=== PATIENT | female | born 1940 ===

== ENCOUNTER 2017-05-25 08:39 | Inpatient (IN) ==
--- NOTE | 2017-05-25 09:07 | EKG Report ---
Test Performed on : 05/25/2017 08:48:39 AM Test Reason : Chest Pain Blood Pressure : / mmHG Vent. Rate : 113 BPM Atrial Rate : 113 BPM P-R Int : 120 ms QRS Dur : 088 ms QT Int : 326 ms P-R-T Axes : 057 -41 080 degrees QTc Int : 447 ms Sinus tachycardia. Possible Left atrial enlargement Left axis deviation Low voltage QRS Abnormal ECG No previous ECGs available Unconfirmed Result
[2017-05-25 09:38] LABS: MANUAL DIFF NEEDED? NO
[2017-05-25 09:43] LABS: BASO% 0.2 % (0.0-0.8); EOS% 2.3 % (0.0-10.0); HEMATOCRIT 43.3 % (37.0-47.0); HEMOGLOBIN 14.6 g/dL (12.0-16.0); IMM GRAN# 0.03 X1000 (0.0-0.04); IMM GRAN% 0.2 % (0.0-0.5); LYMPH# 1.04 X1000 (1.2-3.4); LYMPH% 8.1 % (20.5-51.1); MCH 29.7 PG (27-31); MCHC 33.7 g/dL (33-37); MCV 88.2 FL (81-99); MONO# 0.83 X1000 (0.11-0.59); MONO% 6.5 % (1.7-9.3); MPV 9.4 FL (7.4-10.4); NEUT% 82.7 % (42.2-75.2); PLT 219 X1000 (130-400); RBC 4.91 XMIL (4.2-5.4)
[2017-05-25 09:58] LABS: INR 1.07; PROTIME 11.3 Seconds (9.2-11.7); PTT 22.4 Seconds (22.0-36.0)
--- NOTE | 2017-05-25 09:59 | Diag Imaging Result Doc PS360 ---
EXAM: CHEST-2 VIEWS HISTORY: CP TECHNIQUE: PA and lateral chest COMMENT: There is a massive left pleural effusion with shift of the mediastinum to the right. Nearly the entire left lung is atelectatic. There is a pleural-based mass or area of pleural thickening in the right apex. There is possible lytic destruction of the anterior right first rib. The possibility of metastatic disease or multiple myeloma should be considered. The heart size is not apparently enlarged. There are no previous studies available for comparison. IMPRESSION: Massive left pleural effusion with compressive atelectasis and shift of the mediastinum. Subpleural mass in the anterior right apex. Electronically signed by Mamadou Knox 05/25/2017 9:56 AM
[2017-05-25 10:11] LABS: AGAP 21; ALBUMIN 3.4 g/dL (3.5-5.0); ALKALINE PHOSPHATASE 146 U/L (32-104); BUN 26 mg/dL (8-22); CALCIUM 9.1 mg/dL (8.8-10.2); CHLORIDE 98 mmol/L (98-107); CK PROFILE 59 U/L (24-173); COSMO 282; GOT 14 U/L (10-30); GPT 9 U/L (10-36); MAGNESIUM 2.3 mg/dL (1.5-2.7); SODIUM 138 mmol/L (136-145); TCO2 19 mmol/L (25-35); TOTAL BILIRUBIN 0.78 mg/dL (0.20-1.00); TOTAL PROTEIN 7.1 g/dL (6.3-8.3)
[2017-05-25 12:02] LABS: URINE MICRO REVIEW NEEDED? NO; URINE SOURCE CLEAN CATCH
[2017-05-25 12:16] LABS: BILIRUBIN URINE SMALL (NEGATIVE); BLOOD URINE NEGATIVE (NEGATIVE); COLOR YELLOW; GLUCOSE URINE NEGATIVE (NEGATIVE); LEUKOCYTES URINE NEGATIVE (NEGATIVE); NITRITE URINE NEGATIVE (NEGATIVE); PROTEIN URINE 50 mg/dL (NEGATIVE); TURBIDITY URINE CLEAR (CLEAR); UROBILINOGEN URINE 3 mg/dL (NORMAL)
[2017-05-25 12:17] LABS: UR EPITHELIAL CELLS >10 /HPF (<10); URINE BACTERIA NEGATIVE /HPF; URINE CULTURE NEEDED? YES; URINE RBC <10 /HPF (<10)
--- NOTE | 2017-05-25 12:17 | Diag Imaging Result Doc PS360 ---
EXAM: CT THORAX W/O CONTRAST HISTORY: malignancy possibly TECHNIQUE: CT of the chest without contrast with reduced radiation dose COMMENT: There are no previous studies available for comparison. There is an expansile mass arising from the anterior right first rib. This is presumably responsible for the extrapleural mass seen on the plain radiograph. It measures 4.7 x 3.7 cm in the axial plane. The left hemithorax is nearly completely airless with a massive pleural effusion and nearly complete atelectasis of the left lower lobe. There is right paratracheal and aorticopulmonary window adenopathy with the latter demonstrating a node approaching 15 mm in greatest dimension. There is some calcification in the left anterior descending coronary artery. 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 The differential diagnosis would include other metastatic processes. Massive left pleural effusion. Possibility of an endobronchial obstruction cannot be excluded. Electronically signed by Mamadou Knox 05/25/2017 12:15 PM
[2017-05-25] MEDS ORDERED: ZOFRAN IV PRN (12:22)
[2017-05-25] MEDS ORDERED: ATIVAN IV PRN (12:22)
[2017-05-25] MEDS ORDERED: TYLENOL PO PRN (12:22)
--- NOTE | 2017-05-25 12:37 | Diag Imaging Result Doc PS360 ---
EXAM: CT THORAX/ABDOMEN/PELVIS INDICATION: possible mets TECHNIQUE: Dose reduction protocol was used. COMPARISON: Unenhanced CT chest performed just prior to the study on 05/25/2017. No prior CT abdomen and pelvis is available for comparison. FINDINGS: CHEST: The lytic mass in the right first rib mentioned on the recent unenhanced CT is again noted. It exhibits mild enhancement at its periphery. The large left pleural effusion is again noted. Marked atelectasis on the left is again noted. There is heterogeneous enhancement of the atelectatic left lower lobe that is nonspecific, possibly related to infection. The nodularity in the right lung parenchyma is again noted. The addition of contrast reveals a filling defect in several branches of the right pulmonary artery leading to the right lower lobe consistent with pulmonary embolism. There are shotty small nonspecific mediastinal lymph nodes that are more apparent with the addition of contrast. ABDOMEN/PELVIS: There is a 2.3 cm low dense right adrenal mass that is nonspecific but probably represents an adenoma. Consider adenoma protocol follow-up. There is mild thickening of the left adrenal gland suggesting hyperplasia. There is a tiny low dense focus involving the left hepatic lobe that is too small to characterize but probably represents a small cyst. The gallbladder, spleen, and pancreas are unremarkable. The kidneys are unremarkable. There is mild thickening of the anterior urinary bladder wall that is probably due to incomplete distention. Correlate clinically to exclude cystitis. There is a tiny 1 cm low dense lesion arising from the left ovary most likely represents a cyst. Consider ultrasound follow-up, however. There is diverticulosis coli and there are a couple focal inflammatory changes associated with the proximal sigmoid colon that appear to be emanating from a prominent diverticulum consistent with acute diverticulitis. There is no evidence of abscess or free abdominal gas to indicate perforation. The appendix is normal. The remainder of the GI tract is essentially unremarkable. The bones of the abdomen and pelvis are osteopenic and there is degenerative change throughout the spine. There is nothing to suggest metastatic disease or plasmacytoma involving the bones of the abdomen and pelvis. IMPRESSION: 1.Pulmonary embolism on the right as described. 2.Otherwise, the chest is stable as compared to a very recent unenhanced CT chest performed the same day. 3.Sigmoid colonic diverticulitis with no evidence of perforation. 4.Other incidental/nonacute findings detailed above. Electronically signed by Bry Sosa 05/25/2017 12:35 PM
[2017-05-25] MEDS: ATROVENT NEB INH SCH ×4 (13:00→23:18)
[2017-05-25] MEDS: XOPENEX NEB INH SCH ×4 (13:00→23:18)
--- NOTE | 2017-05-25 14:30 | Diag Imaging Result Doc PS360 ---
EXAM: CHEST-2 VIEWS HISTORY: POST LEFT THORA TECHNIQUE: Inspiratory expiratory AP upright COMMENT: There is no evidence of pneumothorax. The volume of pleural fluid on the left is decreased slightly. IMPRESSION: No evidence of pneumothorax. Electronically signed by Mamadou Knox 05/25/2017 2:27 PM
--- NOTE | 2017-05-25 15:00 | Diag Imaging Result Doc PS360 ---
EXAM: THORACENTESIS W/IMAGE GUIDANCE HISTORY: large left pleural effusion with mediastinal shift TECHNIQUE: Ultrasound-guided left thoracentesis COMMENT: Consent had previously been obtained from the patient's son. Following sterile preparation the skin posteriorly over the lower left chest and administration 1% lidocaine to the skin and deeper soft tissues, the largest of pleural fluid collection which was previously demonstrated on ultrasonography was punctured with the thoracentesis catheter and subsequently 800 mL of dark steve slightly turbid fluid was drained by syringe pump technique. There are no immediate complications and the patient tolerated the procedure well. IMPRESSION: Successful left thoracentesis with ultrasound guidance. Electronically signed by Mamadou Knox 05/25/2017 2:57 PM
[2017-05-25] MEDS: MERREM 500 MG in NS 50 ML IV SCH ×2 (15:01→23:21)
[2017-05-25 15:33] LABS: ALLEN TEST NO; BE -0.5 mmoll (-3.0-3.0); BLOOD TYPE ARTERIAL; DRAW SITE R BRACHIAL; METHB 0.9 % (0.0-1.5); O2(CT) 18.2 mL/dL (15.0-23.0); PCO2(98.6) 33 mmHg (35-45); PO2(98.6) 85 mmHg (60-100); SAMPLE BLOOD; SAO2 98.7 % (95.0-100.0); THB 13.4 g/dL (11.5-17.4); pH(98.6) 7.45 (7.35-7.45)
[2017-05-25 15:34] LABS: MODALITY CANNULA
[2017-05-25 16:55] LABS: DIFF NEEDED? YES; MONOS 22 %; POLYS 78 %; WBC BF 1715 /cumm
[2017-05-25 17:02] LABS: TOTAL PROT BODY FLUID 4.3 g/dL
[2017-05-25] MEDS: PULMICORT INH SCH (19:34)
[2017-05-25] MEDS: LOVENOX SUBQ SCH (20:40)
[2017-05-25] MEDS: ZANTAC PO SCH (20:40)
[2017-05-25] MEDS ORDERED: DESYREL PO SCH (21:00)
--- NOTE | 2017-05-25 22:04 | ECHO REPORT ---
ORDER DATE: 05/25/2017 MEASUREMENTS: Left ventricular end-diastolic 3.6, end-systolic diameter 2.4, septal thickness 1.2, posterior wall thickness 1.0, left atrium 3.2. SUMMARY: 1. Technically difficult study due to limited acoustic window quality. Intravenous echo contrast agent Definity was used to enhance endocardial definition. 2. Aortic valve is without gross structural abnormality and appears to open adequately on 2- dimensional images. Peak gradient across aortic valve is less than 10 mmHg. Mitral, tricuspid and pulmonic valves are without evidence of structural abnormality. There is mild tricuspid regurgitation. Estimated systolic PA pressure by Doppler is 55 mmHg. Aortic root is normal size. 3. Normal left ventricular dimensions demonstrated. Estimated left ventricular ejection fraction appears to be at least 65%. No regional wall motion abnormalities are evident. Doppler suggests grade 1 left ventricular diastolic dysfunction. Left atrium, right atrium, and right ventricle are normal size with normal right ventricular systolic function. 4. No pericardial effusion. 5. Appearance of inferior vena cava suggests normal central venous pressure. 6. Large left pleural effusion evident. CONCLUSIONS: 1. Technically difficult study. 2. Mild tricuspid regurgitation with moderate pulmonary hypertension by Doppler. 3. Normal left ventricular systolic function without wall motion abnormality evident. 4. Grade 1 left ventricular diastolic dysfunction suggested. 5. Large left pleural effusion. cc: MD Pao Isbell CRNP
[2017-05-26] MEDS: ATROVENT NEB INH SCH ×6 (03:30→22:55)
[2017-05-26] MEDS: XOPENEX NEB INH SCH ×6 (03:30→22:55)
[2017-05-26 04:43] LABS: ALLEN TEST YES; BE -1.4 mmoll (-3.0-3.0); BLOOD TYPE ARTERIAL; DRAW SITE R RADIAL; METHB 1.1 % (0.0-1.5); O2(CT) 18.6 mL/dL (15.0-23.0); PCO2(98.6) 36 mmHg (35-45); PO2(98.6) 71 mmHg (60-100); SAMPLE BLOOD; SAO2 96.1 % (95.0-100.0); THB 14.1 g/dL (11.5-17.4); pH(98.6) 7.41 (7.35-7.45)
[2017-05-26 04:44] LABS: MODALITY CANNULA
[2017-05-26 04:56] LABS: MANUAL DIFF NEEDED? NO
[2017-05-26 05:03] LABS: BASO% 0.3 % (0.0-0.8); EOS# 0.29 X1000 (0.0-0.7); EOS% 3.8 % (0.0-10.0); HEMATOCRIT 40.2 % (37.0-47.0); HEMOGLOBIN 13.5 g/dL (12.0-16.0); LYMPH# 0.88 X1000 (1.2-3.4); LYMPH% 11.6 % (20.5-51.1); MCH 30.1 PG (27-31); MCHC 33.6 g/dL (33-37); MCV 89.5 FL (81-99); MONO# 0.56 X1000 (0.11-0.59); MONO% 7.4 % (1.7-9.3); NEUT% 76.9 % (42.2-75.2); PLT 215 X1000 (130-400); RBC 4.49 XMIL (4.2-5.4)
[2017-05-26 05:19] LABS: INR 1.12; PROTIME 11.8 Seconds (9.2-11.7); PTT 30.6 Seconds (22.0-36.0)
[2017-05-26 05:24] LABS: AGAP 15; ALKALINE PHOSPHATASE 136 U/L (32-104); BUN 22 mg/dL (8-22); CALCIUM 8.1 mg/dL (8.8-10.2); CHLORIDE 102 mmol/L (98-107); COSMO 283; GOT 11 U/L (10-30); GPT 6 U/L (10-36); MAGNESIUM 2.4 mg/dL (1.5-2.7); POTASSIUM 3.9 mmol/L (3.5-5.1); SODIUM 140 mmol/L (136-145); TCO2 23 mmol/L (25-35); TOTAL BILIRUBIN 0.56 mg/dL (0.20-1.00); TOTAL PROTEIN 5.9 g/dL (6.3-8.3)
[2017-05-26] MEDS: MERREM 500 MG in NS 50 ML IV SCH ×3 (05:31→21:05)
[2017-05-26] MEDS: SYNTHROID PO SCH (06:06)
[2017-05-26] MEDS ORDERED: PRILOSEC PO SCH (07:00)
[2017-05-26] MEDS: PULMICORT INH SCH ×2 (07:25→19:10)
[2017-05-26] MEDS ORDERED: LOVENOX SUBQ SCH (08:00)
--- NOTE | 2017-05-26 08:49 | EKG Report ---
Test Performed on : 05/26/2017 06:39:25 AM Test Reason : chest pain Blood Pressure : / mmHG Vent. Rate : 090 BPM Atrial Rate : 090 BPM P-R Int : 120 ms QRS Dur : 082 ms QT Int : 374 ms P-R-T Axes : 034 -22 007 degrees QTc Int : 457 ms Normal sinus rhythm. Normal ECG When compared with ECG of 25-MAY-2017 08:48, (Unconfirmed) Nonspecific T wave abnormality now evident in Inferior leads T wave inversion no longer evident in Lateral leads Confirmed by Jessica ROYAL, Odin Monreal ([id number]) on 05/28/2017 6:37:52 AM
[2017-05-26] MEDS: CYMBALTA PO SCH (09:14)
[2017-05-26] MEDS: LOVENOX SUBQ SCH ×2 (11:31→20:27)
[2017-05-26] MEDS: ZANTAC PO SCH (20:25)
[2017-05-27] MEDS: ATROVENT NEB INH SCH ×3 (03:50→11:25)
[2017-05-27] MEDS: XOPENEX NEB INH SCH ×3 (03:50→11:25)
[2017-05-27 04:46] LABS: MANUAL DIFF NEEDED? NO
[2017-05-27 04:51] LABS: BASO% 0.5 % (0.0-0.8); EOS# 0.37 X1000 (0.0-0.7); EOS% 6.4 % (0.0-10.0); HEMATOCRIT 40.2 % (37.0-47.0); HEMOGLOBIN 13.3 g/dL (12.0-16.0); LYMPH% 13.7 % (20.5-51.1); MCH 29.8 PG (27-31); MCHC 33.1 g/dL (33-37); MCV 90.1 FL (81-99); MONO# 0.44 X1000 (0.11-0.59); MONO% 7.6 % (1.7-9.3); MPV 8.6 FL (7.4-10.4); NEUT% 71.8 % (42.2-75.2); PLT 227 X1000 (130-400); RBC 4.46 XMIL (4.2-5.4)
[2017-05-27 05:03] LABS: AGAP 14; ALBUMIN 2.8 g/dL (3.5-5.0); ALKALINE PHOSPHATASE 128 U/L (32-104); BUN 17 mg/dL (8-22); CALCIUM 8.1 mg/dL (8.8-10.2); CHLORIDE 100 mmol/L (98-107); COSMO 277; GOT 10 U/L (10-30); GPT 6 U/L (10-36); MAGNESIUM 2.4 mg/dL (1.5-2.7); POTASSIUM 3.6 mmol/L (3.5-5.1); SODIUM 138 mmol/L (136-145); TCO2 24 mmol/L (25-35); TOTAL BILIRUBIN 0.42 mg/dL (0.20-1.00); TOTAL PROTEIN 5.8 g/dL (6.3-8.3)
[2017-05-27] MEDS: MERREM 500 MG in NS 50 ML IV SCH (05:10)
[2017-05-27] MEDS: SYNTHROID PO SCH (06:03)
[2017-05-27] MEDS: PULMICORT INH SCH (07:38)
[2017-05-27] MEDS: CYMBALTA PO SCH (08:51)
[2017-05-27] MEDS: LOVENOX SUBQ SCH (08:52)
[2017-05-27] MEDS: ZANTAC PO SCH (20:00)
[2017-05-28 05:19] LABS: MANUAL DIFF NEEDED? NO
[2017-05-28 05:25] LABS: BASO% 0.3 % (0.0-0.8); EOS# 0.38 X1000 (0.0-0.7); EOS% 6.2 % (0.0-10.0); HEMATOCRIT 41.4 % (37.0-47.0); HEMOGLOBIN 13.7 g/dL (12.0-16.0); LYMPH# 0.83 X1000 (1.2-3.4); LYMPH% 13.5 % (20.5-51.1); MCHC 33.1 g/dL (33-37); MCV 90.6 FL (81-99); MONO# 0.59 X1000 (0.11-0.59); MONO% 9.6 % (1.7-9.3); MPV 8.6 FL (7.4-10.4); NEUT% 70.4 % (42.2-75.2); PLT 271 X1000 (130-400); RBC 4.57 XMIL (4.2-5.4)
[2017-05-28] MEDS: SYNTHROID PO SCH (06:06)
[2017-05-28 06:18] LABS: AGAP 15; ALBUMIN 2.9 g/dL (3.5-5.0); ALKALINE PHOSPHATASE 136 U/L (32-104); BUN 18 mg/dL (8-22); CALCIUM 8.2 mg/dL (8.8-10.2); CHLORIDE 101 mmol/L (98-107); COSMO 276; GOT 13 U/L (10-30); GPT 5 U/L (10-36); MAGNESIUM 2.3 mg/dL (1.5-2.7); SODIUM 137 mmol/L (136-145); TCO2 21 mmol/L (25-35); TOTAL BILIRUBIN 0.48 mg/dL (0.20-1.00)
[2017-05-28] MEDS: MORPHINE IV PRN (20:04)
[2017-05-28] MEDS: ZANTAC PO SCH (22:04)
[2017-05-29] MEDS: MORPHINE IV PRN (03:08)
[2017-05-29] MEDS: SYNTHROID PO SCH (06:33)
[2017-05-29 10:11] VITALS: BP 111/56
== END 2017-05-29 12:54 | disposition hospice, home (50) ==
LOC: ED 08:39 → 3S 11:14 → 3N 05-28 14:51
PROVIDERS: ATTEND Internal Medicine